=== PATIENT | female | born 1955 | race Caucasian/White ===

== ENCOUNTER 2018-03-09 18:16 | Emergency (ER) | payer MEDICARE ==
[2018-03-09] MEDS ORDERED: METOCLOPRAMIDE HCL INJ/PF 10 MG/2 ML SDV IV ONE (18:46)
[2018-03-09] MEDS ORDERED: GLUCAGON,HUMAN RECOMB 1 MG INJ IV ONE (18:46)
--- NOTE | 2018-03-09 19:02 | ER Document Report ---
ED General - General Chief Complaint: Swallowed Foreign Body Stated Complaint: CHOKING,SOMETHING IN THROAT Time Seen by Provider: 03/09/18 18:31 Mode of Arrival: Ambulatory Information source: Patient TRAVEL OUTSIDE OF THE [place] IN LAST 30 DAYS: No - HPI Notes: Patient is a pleasant 63-year-old female with history of rheumatoid arthritis presents to the emergency department with report that she was eating steak and somewhat slipped and swallowed a large piece of steak that she had not yet completely chewed up. The patient states she had an immediate esophageal food bolus sensation and was unable to swallow her secretions thereafter. Patient denies any chest pain or difficulty breathing or abdominal pain. She reports no prior episodes of esophageal food bolus in the past. Patient does have a smoking history. - Related Data Allergies/Adverse Reactions: No Known Allergies Allergy (Unverified 03/09/18 18:17) Past Medical History - General Information source: Patient - Social History Smoking Status: Current Every Day Smoker Frequency of alcohol use: None Drug Abuse: None Lives with: Friend Family History: Reviewed & Not Pertinent Patient has suicidal ideation: No Patient has homicidal ideation: No Renal/ Medical History: Denies: Hx Peritoneal Dialysis Review of Systems - Review of Systems Notes: REVIEW OF SYSTEMS: CONSTITUTIONAL : Denies fever, chills, or sweats. Denies recent illness. EENT: Denies eye, ear, throat, or mouth pain or symptoms. Denies nasal or sinus congestion or discharge. CARDIOVASCULAR: Denies chest pain. Denies palpitations or racing or irregular heart beat. Denies ankle edema. RESPIRATORY: Denies cough, cold, or chest congestion. Denies shortness of breath, difficulty breathing, or wheezing. GASTROINTESTINAL: Denies abdominal pain or distention. Denies nausea, vomiting , or diarrhea. Denies blood in vomitus, stools, or per rectum. Denies black, tarry stools. Denies constipation. GENITOURINARY: Denies difficulty urinating, painful urination, burning, frequency, blood in urine, or discharge. FEMALE GENITOURINARY: Denies vaginal bleeding, heavy or abnormal periods, irregular periods. Denies vaginal discharge or odor. MUSCULOSKELETAL: Denies back or neck pain or stiffness. Denies joint pain or swelling. SKIN: Denies rash, lesions or sores. HEMATOLOGIC : Denies easy bruising or bleeding. LYMPHATIC: Denies swollen, enlarged glands. NEUROLOGICAL: Denies confusion or altered mental status. Denies passing out or loss of consciousness. Denies dizziness or lightheadedness. Denies headache. Denies weakness or paralysis or loss of use of either side. Denies problems with gait or speech. Denies sensory loss, numbness, or tingling. Denies seizures. PSYCHIATRIC: Denies anxiety or stress. Denies depression, suicidal ideation, or homicidal ideation. ALL OTHER SYSTEMS REVIEWED AND NEGATIVE. Dictation was performed using [employer] voice recognition software Physical Exam - Vital signs Vitals: Temp Pulse Resp BP Pulse Ox 98.3 F 98 22 H 144/107 H 97 03/09/18 18:21 03/09/18 18:21 03/09/18 18:21 03/09/18 18:21 03/09/18 18:21 - Notes Notes: PHYSICAL EXAMINATION: GENERAL: Well-appearing, well-nourished, but in obvious distress spitting out saliva and secretions.. HEAD: Atraumatic, normocephalic. EYES: Pupils equal round and reactive to light, extraocular movements intact, conjunctiva are normal. ENT: Nares patent, oropharynx clear without exudates. Moist mucous membranes. NECK: Normal range of motion, supple without lymphadenopathy LUNGS: Breath sounds clear to auscultation bilaterally and equal. No wheezes rales or rhonchi. HEART: Regular rate and rhythm without murmurs ABDOMEN: Soft, nontender, nondistended abdomen. No guarding, no rebound. No masses appreciated. Female : deferred Musculoskeletal: Normal range of motion, no pitting or edema. No cyanosis. NEUROLOGICAL: Cranial nerves grossly intact. Normal speech, normal gait. Normal sensory, motor exams PSYCH: Normal mood, normal affect. SKIN: Warm, Dry, normal turgor, no rashes or lesions noted. Course - Re-evaluation Re-evalutation: 03/09/18 19:52 Initial evaluation and patient was given suction apparatus to use for secretions. The patient had an IV established and she was placed upon rod filler and pulse oximetry. Initially lab work x-ray and other studies were ordered on the patient. Patient was given IV glucagon 1 mg and shortly thereafter she coughed and then vomited up a large piece of steak measuring about 2 cm x 5 cm. After this patient had relief of discomfort was able to swallow water and the need cracker without any difficulty. I discussed at length with the patient the need for follow-up upper endoscopy to evaluate for possible stricture or scarring or other acute process. - Vital Signs Vital signs: Temp Pulse Resp BP Pulse Ox 98.3 F 98 21 H 134/76 H 97 03/09/18 18:21 03/09/18 18:21 03/09/18 18:47 03/09/18 18:47 03/09/18 18:47 Discharge - Discharge Clinical Impression: Esophageal obstruction due to food impaction Condition: Stable Disposition: HOME, SELF-CARE Instructions: Esophageal Food Impaction ([facility]) Additional Instructions: Chew your food up very thoroughly. You need to follow-up with your regular practitioner to arrange an upper endoscopy to evaluate the cause of the food impaction. Referrals: SHABANA LICONA MD [Primary Care Provider] - Follow up as needed
[2018-03-09 19:51] VITALS: BP 123/106
== END 2018-03-09 19:51 | disposition home or self-care (01) ==
LOC: ER 18:16
DX: T18.120A Food in esophagus causing compression of trachea, initial encounter (principal); K22.2 Esophageal obstruction; M06.9 Rheumatoid arthritis, unspecified; W01.0XXA Fall on same level from slipping, tripping and stumbling without subsequent striking against object, initial encounter; F17.200 Nicotine dependence, unspecified, uncomplicated
CPT/HCPCS: 99283; 96374; J1610

== ENCOUNTER 2018-07-03 07:48 | Day surgery (SDC) | payer MEDICARE ==
[~2018-07-03 07:48] MED LIST: KETOROLAC TROMETHAMINE 0.45% 4 DROP/0.4 ML DROPERETTE OS PRN; TETRACAINE HCL 0.5% OPH SOLN 0.6 ML DROPERETTE OS PRN
[2018-07-03] MEDS ORDERED: LIDOCAINE 1%/PHENYLEPHRINE 1.5% 1 ML VIAL ONE (08:08)
[2018-07-03] MEDS ORDERED: EPINEPHRINE INJ/PF 1 MG/1 ML AMPULE ONE (08:08)
[2018-07-03] MEDS ORDERED: CHONDR SU A NA/HYALUR INTRAOC KIT (SURGICARE) ONE (08:09)
[2018-07-03] MEDS: TETRACAINE HCL 0.5% OPH SOLN 4 ML OS PRN ×3 (08:41→09:14)
[2018-07-03] MEDS: CYCLOPENTOLATE 0.2%/PHENYLEPHRINE 1% OPH SOLN 2 ML OS PRN ×3 (08:41→08:56)
[2018-07-03] MEDS: TROPICAMIDE 1% OPH SOLN 3 ML OS PRN ×3 (08:41→08:56)
[2018-07-03] MEDS: BESIFLOXACIN HCL 0.6% OPH SUSP 5 ML BOTTLE OS PRN ×3 (08:41→09:42)
[2018-07-03] MEDS ORDERED: MIDAZOLAM 2 MG/2 ML INJ ONE (08:54)
[2018-07-03] MEDS ORDERED: FENTANYL CITRATE INJ/PF 100 MCG/2 ML AMPUL ONE (08:54)
--- NOTE | 2018-07-03 13:21 | [facility] OPERATIVE REPORT E ---
[facility] Operative Report NAME: LINDA BLISS AGE: 63Y DATE OF SURGERY: 07/03/2018 ROOM: PREOPERATIVE DIAGNOSIS: CATARACT, LEFT EYE. POSTOPERATIVE DIAGNOSIS: CATARACT, LEFT EYE. OPERATION: Cataract extraction with insertion of an IOL of the left eye. SURGEON: KOBI PLAZA M.D. ANESTHESIA: Topical. PROCEDURE: After obtaining appropriate consent, the patient's left eye was prepped and draped in sterile fashion as well as the surgeon in a sterile manner and cataract surgery was started. First a paracentesis blade was used to make a side-port incision. Viscoelastic was used to inflate the anterior chamber. Next a 2.4 mm incision was made with a 2.4 mm blade, clear corneal temporally. A continuous capsulorrhexis was made using a cystotome and Utrata forceps. Following this hydrodissection was carried out to make the lens fully loose and mobile and it was rotated 90 degrees. Following this, a vivijq-znb-lxrvdra technique was used to phacoemulsify the lens with a CDE of 6.33. The remaining cortex was removed with irrigation/aspiration. Provisc was instilled into the capsular bag to inflate the bag. A SN60WF, 11.5 diopter lens was placed. The remaining viscoelastic material was removed with irrigation/aspiration. Following this, the incision was found to be watertight. Besivance was instilled into the eye and a protective shield was placed over the eye. The patient returned to the postoperative recovery in stable condition. DICTATING PHYSICIAN: KOBI PLAZA M.D. [id number] PHY#: [id number] ID: [id number] JOB#: [id number] ACCT: [id number] cc:KOBI PLAZA M.D. >
--- NOTE | 2018-07-03 13:26 | [facility] DISCHARGE SUMMARY E ---
[facility] Discharge Summary NAME: LINDA BLISS AGE: 63Y ADMITTED: 07/03/2018 DISCHARGED: 07/03/2018 HOSPITAL COURSE: This is a 63-year-old patient who underwent cataract extraction of the left eye. DIAGNOSIS: CATARACT, LEFT EYE. He underwent surgery because was having trouble seeing newspaper and medicine bottles. DISCHARGE INSTRUCTIONS: He should be on a regular diet. No bending at her waist, no heavy lifting. Patient should use the Besivance, Ilevro, and Durezol at 3 p.m. and 8 p.m. and sleep with a rigid shield. I will see him for 1 day postoperative tomorrow. DICTATING PHYSICIAN: KOBI PLAZA M.D. [id number] PHY#: [id number] ID: [id number] JOB#: [id number] ACCT: [id number] cc:KOBI PLAZA M.D. >
== END 2018-07-03 10:23 | disposition home or self-care (01) ==
LOC: SC 07:48
PROVIDERS: ATTEND Internal Medicine
DX: H25.813 Combined forms of age-related cataract, bilateral (principal); I10 Essential (primary) hypertension; M19.90 Unspecified osteoarthritis, unspecified site; Z79.899 Other long term (current) drug therapy
CPT/HCPCS: 66984; V2632; J2250; J3490 ×2; A9270; J0171; J3010; J2370; 142